=== PATIENT | female | born 1945 | race Caucasian/White ===

== ENCOUNTER → 2017-09-06 | Outpatient (CLI) | payer BC, MEDICARE | END | disposition home or self-care (01) | LOC: HKI 10:12 | DX: M17.0 Bilateral primary osteoarthritis of knee (principal) | CPT/HCPCS: 20610 ==

== ENCOUNTER → 2017-10-06 | Outpatient (CLI) | payer BC, MEDICARE ==
[2017-10-06 12:40] LABS: ADD MAN DIFF? NO
[2017-10-06 12:49] LABS: BASOPHIL # 0.1 10^3/ul (0.0-0.1); BASOPHILS % 0.8 % (0.0-2.0); EOSINOPHILS # 0.4 10^3/ul (0.0-0.5); EOSINOPHILS % 6.4 % (0.0-7.0); HEMATOCRIT 44.4 % (37.0-47.0); HEMOGLOBIN 14.7 g/dl (12.0-16.0); LYMPHOCYTES # 2.5 10^3/ul (0.8-2.9); LYMPHOCYTES % 38.4 % (15.0-51.0); MEAN CORPUSCULAR HEMOGLOBIN 30.2 pg (29.0-33.0); MEAN CORPUSCULAR HGB CONC 33.1 g/dl (32.0-37.0); MEAN CORPUSCULAR VOLUME 91.2 fl (82.0-101.0); MEAN PLATELET VOLUME 10.5 fl (7.4-10.4); MONOCYTE # 0.5 10^3/ul (0.3-0.9); NEUTROPHIL # 3.1 10^3/ul (1.6-7.5); NEUTROPHILS % 47.1 % (39.0-77.0); PLATELET COUNT 293 10^3/UL (140-415); RED BLOOD COUNT 4.87 10^6/ul (4.20-5.40); RED CELL DISTRIBUTION WIDTH 13.8 % (11.5-14.5)
[2017-10-06 12:49] LABS: WHITE BLOOD COUNT 6.6 10^3/ul (4.8-10.8)
[2017-10-06 13:07] LABS: ALANINE AMINOTRANSFERASE 40 IU/L (13-69); ALBUMIN 4.5 g/dl (3.3-4.9); ALBUMIN/GLOBULIN RATIO 1.36; ALKALINE PHOSPHATASE 109 IU/L (42-121); ANION GAP 17 (8-16); ASPARTATE AMINO TRANSFERASE 36 IU/L (15-46); BILIRUBIN,INDIRECT 0.3 mg/dl (0-1.1); BILIRUBIN,TOTAL 0.3 mg/dl (0.2-1.3); BLOOD UREA NITROGEN 23 mg/dl (7-20); CALCIUM 10.4 mg/dl (8.4-10.2); CARBON DIOXIDE 28 mmol/L (21-31); CHLORIDE 107 mmol/L (97-110); CHOLESTEROL 306 mg/dl (100-200); CREATININE 0.96 mg/dl (0.44-1.00); GLUCOSE 113 mg/dl (70-220); HDL CHOLESTEROL 38 mg/dl (33-92); LDL CHOLESTEROL,CALCULATED 197 mg/dl; POTASSIUM 4.3 mmol/L (3.5-5.1); SODIUM 148 mmol/L (135-144); TOTAL PROTEIN 7.8 g/dl (6.1-8.1); TRIGLYCERIDES 354 mg/dl (0-149)
== END | disposition home or self-care (01) ==
LOC: LAB 12:22
DX: I10 Essential (primary) hypertension (principal); E55.9 Vitamin D deficiency, unspecified
CPT/HCPCS: 80053; 80061; 82652; 84443; 85025

== ENCOUNTER → 2017-12-05 | Outpatient (CLI) | payer BC, MEDICARE | END | disposition home or self-care (01) | LOC: HKI 09:26 | DX: M17.0 Bilateral primary osteoarthritis of knee (principal) | CPT/HCPCS: 20610 ==

== ENCOUNTER → 2018-03-10 | Outpatient (CLI) | payer BC, MEDICARE | END | disposition home or self-care (01) | LOC: HKI 09:22 | DX: M17.0 Bilateral primary osteoarthritis of knee (principal) | CPT/HCPCS: 20610; 20610-50 ==

== ENCOUNTER → 2018-06-09 | Outpatient (CLI) | payer BC, MEDICARE | END | disposition home or self-care (01) | LOC: HKI 09:31 | DX: M17.0 Bilateral primary osteoarthritis of knee (principal) | CPT/HCPCS: 20610; 20610-50 ==

== ENCOUNTER → 2018-09-21 | Outpatient (CLI) | payer BC, MEDICARE | END | disposition home or self-care (01) | LOC: HKI 14:26 | DX: M17.0 Bilateral primary osteoarthritis of knee (principal); I10 Essential (primary) hypertension | CPT/HCPCS: 20610; 20610-50 ==